=== PATIENT | male | born 1955 | race Caucasian/White ===

== ENCOUNTER → 2019-05-07 | Day surgery (SDC) | payer BC ==
[~2019-05-07] VITALS: Ht 180.3 cm; Wt 99.8 kg
[~2019-05-07] MED LIST: ASPIR 8181 MG PO; FARXIGA10 MG PO; FISH OIL 1,001000 M2 PO; LANTUS100 UNIT/M SUBQ; LIPITOR80 MG PO; METFORMIN HCL500 MG PO; NORCO 5-325 TA1 EAC1 PO; NORVASC5 MG PO; PROTONIX40 M1 PO; TOPROL XL25 MG PO; VALSARTAN-HCTZ1 EAC3 PO; ZETIA10 MG PO
--- NOTE | ~2019-05-07 | O ---
[place] [address] OPERATIVE REPORT Name: DOV MUNOZ Janice Room #: REG [facility].#: [id number] Admission: 05/07/19 Attend Phys: Peyman Langston MD Discharge: Date of : 55 Report #: [id number] THIS REPORT FOR: //name// CC: DANIEL Langston DATE OF SERVICE: 05/07/2019 PATIENT OF: Dr. Peyman Langston and Dr. Daniel Washington. PREOPERATIVE DIAGNOSIS: A 6 cm x 5 cm soft tissue tumor of the right upper back. POSTOPERATIVE DIAGNOSIS: A 6 cm x 5 cm soft tissue tumor of the right upper back. PROCEDURE: Excision of 5 cm x 6 cm deep subfascial soft tissue tumor of the right upper back with complex layered closure. SURGEON: Peyman Langston MD ANESTHESIA: Local. DESCRIPTION OF PROCEDURE: The patient was brought to the operating room and placed on the operative table in the prone position. The area of the right upper back was prepped and draped in a sterile fashion. Skin and subcutaneous tissue were then infiltrated with 0.5% Marcaine and 1% Xylocaine in a 1:1 mixture. Transverse skin incision was performed over the mass using a #10 scalpel blade. Hemostasis obtained using electrocautery. Dissection was carried down through subcutaneous tissue and through the fascia to this soft tissue tumor, which was dissected free and sent to pathology for permanent study. Meticulous hemostasis was checked and obtained in the area using the electrocautery. The deep layers of the fascia were then closed using a running 3-0 Vicryl suture. Subcutaneous tissue was then reapproximated using simple [id number] interrupted 3-0 Vicryl sutures. Skin was then closed using running 4-0 subcuticular Vicryl stitch. Wound was then dressed with Mastisol, 1/2-inch Steri-Strips cut in half, Telfa, 4 x 4 gauze, sponge and tape. The patient was then taken to the recovery room, awake, alert and in good condition. Estimated blood loss was approximately 10 mL and the patient tolerated procedure well. All sponge, lap and instrument counts correct x 2. By: [id number] Peyman Langston MD /nt
[2019-05-07 12:24] VITALS: BP 143/80
--- NOTE | 2019-05-07 13:41 | H ---
[facility] [place] [address] HISTORY AND PHYSICAL Name: DOV MUNOZ Janice Room #: REG [facility].#: [id number] Admission: 05/07/19 Attend Phys: Peyman Langston MD Discharge: Date of : 55 Report #: [id number] THIS REPORT FOR: //name// CC: DANIEL Langston SURGICAL ADMISSION HISTORY AND PHYSICAL The patient of Dr. Daniel Washington, Dr. Peyman Langston. DATE OF ADMISSION AND SURGERY: 05/07/2019. CHIEF COMPLAINT: "Lump on my back." HISTORY OF PRESENT ILLNESS: The patient is a 63-year-old white male who found on a routine physical examination by his primary care physician, Dr. Daniel Washington a soft tissue mass on his back. He thinks it is getting larger and was sent for surgical consultation. He denied any redness, pain or drainage. There is some slight discomfort. After full discussion with the patient, the diagnosis, prognosis, and treatment options, patient desires proceeding with excision. PAST MEDICAL HISTORY: Prediabetes, hypertension, coronary artery disease with coronary artery stenting, renal lithiasis, history of skin carcinoma. MEDICATIONS: Avapro, Protonix, metformin, Zocor, Toprol-XL, aspirin, fish oil. ALLERGIES: OXYCODONE CAUSES ITCHING, PENICILLIN CAUSES HIVES. FAMILY HISTORY: Noncontributory. SOCIAL HISTORY: The patient does not smoke, drinks alcohol occasionally. REVIEW OF SYSTEMS: Pertinent positives as above. Full review of systems otherwise negative. PHYSICAL EXAMINATION: GENERAL: This is a well-developed, well-nourished white male in no acute distress. VITAL SIGNS: Stable. He is afebrile. Height 70.5 inches, weight is 217 pounds, BMI of 30.8. HEENT: Sclerae are nonicteric. Mucous membranes moist and pink. NECK: There is no adenopathy, no thyromegaly. LUNGS: Clear to auscultation bilaterally. Normal excursion. CARDIOVASCULAR: Regular rate and rhythm. No murmurs, S3 or S4. Normal PMI. BACK: On the right upper back, there is a 4 cm x 5 cm smooth, mobile, nontender [address] [address] HISTORY AND PHYSICAL Name: DOV MUNOZ Room #: REG [facility].#: [id number] Admission: 05/07/19 Attend Phys: Peyman Langston MD Discharge: Date of : 55 Report #: [id number] subcutaneous mass located near beneath the fascia, it is somewhat mobile. ABDOMEN: Soft, flat and nontender. No palpable masses, no organomegaly, no hernias. EXTREMITIES: No clubbing, cyanosis or edema. NEUROLOGIC: Intact. Clear mental status. No focal motor or sensory deficits. IMPRESSION: A 63-year-old white male with soft tissue tumor on the right upper back. I fully discussed with the patient the diagnosis, prognosis, and treatment options. He states he would like to proceed with excision. PLAN: We will perform excision of the subcutaneous mass in the right upper back under local anesthesia as an outpatient at [facility]. The procedure and its risks, benefits, possible complications were fully discussed with the patient. He states he understands and agrees to proposed surgery. <ELECTRONICALLY SIGNED> By: Peyman Langston MD 05/07/19 1341 [id number] Peyman Langston MD /nt
[2019-05-07 15:01] VITALS: BP 143/80
--- NOTE | 2019-05-10 18:06 | PATH ---
[facility] [address] [place] [address] PATHOLOGY RPT PROCEDURE Name: MICHEL MUNOZ Room #: [place] [facility] [place].#: [id number] Admission: 05/07/19 Date of : 55 Discharge: Report #: [id number] Path Case #: [id number] [facility] Accession Number: [id number] . 01 Material submitted: . back - SOFT TISSUE TUMOR OF THE BACK . 01 Clinical history: . Soft tissue mass of back. . 02 Diagnosis: Mature adipose tissue, soft tissue tumor of the back, excision: - Compatible with a lipoma. (IUV/db; 05/10/2019) LBQ/05/10/2019 . 02 Electronically signed: . Angélica Robles MD, Pathologist NPI- [id number] . 01 Gross description: . Received in formalin labeled "Michel Munoz, soft tissue tumor from back" is a partially encapsulated yellow-dockery lobulated soft tissue mass measuring 4.6 x 3.5 x 1.7 cm. The external surface is inked black. The specimen is sectioned to reveal a yellow-dockery homogenous cut surface without hemorrhage or necrosis. Organ Builder sections are submitted in A1-A3. [place] [place] SYC/SYC . 02 Pathologist provided ICD-10: D17.1 . 02 CPT . 966584 Specimen Comment: A courtesy copy of this report has been sent to Specimen Comment: [phone], . Specimen Comment: Report sent to / DR TORRES Performed at: [address], [place] [id number] MD Julius Red MD Phone: [phone] Performed at: [address] [id number] MD Angélica Robles MD Phone: [phone]
== END | disposition home or self-care (01) ==
LOC: OR 10:49
DX: D17.1 Benign lipomatous neoplasm of skin and subcutaneous tissue of trunk (principal); I10 Essential (primary) hypertension; E11.9 Type 2 diabetes mellitus without complications; E78.00 Pure hypercholesterolemia, unspecified; K21.9 Gastro-esophageal reflux disease without esophagitis; I25.10 Atherosclerotic heart disease of native coronary artery without angina pectoris; Z87.442 Personal history of urinary calculi; Z85.828 Personal history of other malignant neoplasm of skin; Z88.0 Allergy status to penicillin; Z88.8 Allergy status to other drugs, medicaments and biological substances; Z79.82 Long term (current) use of aspirin; Z79.899 Other long term (current) drug therapy; Z98.890 Other specified postprocedural states; Z79.4 Long term (current) use of insulin
CPT/HCPCS: 50010; 50101; 50386; 50403; 56524; 56528